=== PATIENT | male | born 1980 | race Caucasian/White ===

== ENCOUNTER → 2020-07-12 | Outpatient (CLI) | payer OTHER | LOC: M.MRI 07:14 | PROVIDERS: ATTEND Family Medicine | DX: M47.816 Spondylosis without myelopathy or radiculopathy, lumbar region (principal); M51.36 Other intervertebral disc degeneration, lumbar region; M48.061 Spinal stenosis, lumbar region without neurogenic claudication; M54.5 Low back pain; G89.29 Other chronic pain; M99.03 Segmental and somatic dysfunction of lumbar region ==